=== PATIENT | male | born 1950 | race Hispanic/Latino ===

== ENCOUNTER → 2020-07-10 | Outpatient (CLI) | payer MEDICARE | END | disposition home or self-care (01) | LOC: RAH 14:08 | PROVIDERS: ATTEND Internal Medicine | DX: M19.071 Primary osteoarthritis, right ankle and foot (principal); M79.89 Other specified soft tissue disorders; L03.115 Cellulitis of right lower limb; I87.2 Venous insufficiency (chronic) (peripheral) | CPT/HCPCS: 73700 ==